=== PATIENT | female | born 1965 | race Hispanic/Latino ===

== ENCOUNTER 2022-05-16 10:34 | Day surgery (SDC) | payer BC ==
[2022-05-16] VITALS (17 sets, daily range): BP systolic 94–150; BP diastolic 49–97
[2022-05-16] MEDS ORDERED: 0.9%NACL 1000ML 1,000 ML IV ONE (11:13)
[2022-05-16] MEDS ORDERED: PROPOFOL 10 MG/ML 20ML VIAL IV ONE (11:46)
[2022-05-16] MEDS ORDERED: FENTANYL CITRATE PF 50 MCG/1 ML 2ML VIAL ONE (11:47)
[2022-05-16] MEDS ORDERED: MIDAZOLAM HCL 1 MG/ML 2ML VIAL ONE (11:47)
[2022-05-16] MEDS ORDERED: SUCCINYLCHOLINE 200MG/10ML SYR ONE (11:48)
[2022-05-16] MEDS ORDERED: GLYCOPYRROLATE 0.2 MG/ML 5 ML VIAL ONE (11:49)
[2022-05-16] MEDS ORDERED: LIDOCAINE PF 100MG/5ML (2%) SYRINGE 5ML ONE (11:50)
[2022-05-16] MEDS ORDERED: ONDANSETRON 4MG INJ ONE (11:50)
[2022-05-16] MEDS ORDERED: IOHEXOL-350 50ML VIAL IV ONE (13:24)
[2022-05-16] MEDS ORDERED: LEVOFLOXACIN 500 MG/D5W 100 ML 100 ML ONE (13:27)
== END 2022-05-16 16:26 | disposition home or self-care (01) ==
LOC: DAH 10:34 → ENDO 10:34
PROVIDERS: ATTEND Internal Medicine Gastroenterology
DX: T85.520A Displacement of bile duct prosthesis, initial encounter (principal); Z20.822 Contact with and (suspected) exposure to COVID-19; K80.70 Calculus of gallbladder and bile duct without cholecystitis without obstruction; K83.8 Other specified diseases of biliary tract; K76.0 Fatty (change of) liver, not elsewhere classified; Z90.49 Acquired absence of other specified parts of digestive tract; Z98.890 Other specified postprocedural states; Z90.710 Acquired absence of both cervix and uterus; Z82.49 Family history of ischemic heart disease and other diseases of the circulatory system; Z83.3 Family history of diabetes mellitus; Z82.3 Family history of stroke; Y83.8 Other surgical procedures as the cause of abnormal reaction of the patient, or of later complication, without mention of misadventure at the time of the procedure
CPT/HCPCS: 87635; 43265; 43262; 74328; C9803; J3010; J0330; J1956; J7030 ×2; J2001; J2250; J2704; J2405; J3490; Q9967; A4215 ×2; A4223; A4657; A4222; A4221; A4663; A4606; C1769; 74330

== ENCOUNTER 2022-05-19 02:33 | Inpatient (IN) | payer BC ==
[~2022-05-19] VITALS: Ht 160 cm; Wt 88.5 kg
[2022-05-19] VITALS (23 sets, daily range): BP systolic 99–157; BP diastolic 53–89
[2022-05-19] MEDS ORDERED: ONDANSETRON 4MG INJ ONE (02:50)
[2022-05-19] MEDS ORDERED: MORPHINE 4 MG SYG ONE (02:51)
[2022-05-19] MEDS ORDERED: ONDANSETRON 4MG INJ IVP ONE (03:30)
[2022-05-19] MEDS ORDERED: MORPHINE 4 MG SYG IVP ONE (03:30)
[2022-05-19 03:32] LABS: BASOPHILS % (AUTO) 0.3 % (0.0-5.0); EOSINOPHILS % (AUTO) 0.1 % (0.0-8.0); HEMATOCRIT 39.9 % (36-48); MEAN CORPUSCULAR HEMOGLOBIN 28.8 pg (27.0-33.0); MEAN CORPUSCULAR HGB CONC 33.3 g/dL (32.0-36.0); MEAN CORPUSCULAR VOLUME 86.4 fL (79-99); MONOCYTES % (AUTO) 2.6 % (3.0-13.0); NEUTROPHILS % (AUTO) 86.6 % (40.0-77.0); PLATELET COUNT (AUTO) 277 K/uL (130-400); RED BLOOD CELL COUNT(AUTO) 4.62 MIL/uL (4.00-5.50); RED CELL DISTRIBUTION WIDTH 14.4 % (11.0-15.5); WHITE BLOOD COUNT (AUTO) 9.8 K/uL (4.8-10.8)
[2022-05-19 03:39] LABS: CREATININE 0.8 mg/dL (0.5-1.5); POTASSIUM 3.3 mmol/L (3.5-5.1)
[2022-05-19 03:40] LABS: APPEARANCE,URINE CLEAR (CLEAR); BILIRUBIN,URINE NEGATIVE (NEGATIVE); COLOR,URINE YELLOW (YELLOW); GLUCOSE, URINE (UA) NEGATIVE (NEGATIVE); KETONES,URINE 5 mg/dL (NEGATIVE); LEUKOCYTE ESTERASE ,URINE NEGATIVE Leu/uL (NEGATIVE); NITRATE,URINE NEGATIVE (NEGATIVE); OCCULT BLOOD,URINE NEGATIVE (NEGATIVE); PH,URINE 5.5 (5.0-8.0); PROTEIN,URINE 10 mg/dL (NEGATIVE); UROBILINOGEN,URINE 3 mg/dL (0.2-1.0)
[2022-05-19 03:44] LABS: BACTERIA,URINE RARE /HPF (None Seen); MUCUS,URINE RARE LPF (None Seen); RBC,URINE 0-1 /HPF (0-1); SQUAMOUS EPITHELIAL CELL,UR RARE /HPF (0-2)
[2022-05-19 04:40] LABS: PLATELET MORPHOLOGY PLT CLUMPS PRESENT
[2022-05-19] MEDS ORDERED: IOHEXOL 350 MG/ML 100ML INFUS..BTL IV ONE ×2 (04:47→13:06)
[2022-05-19] MEDS ORDERED: ZOSYN 3.375GM +NS 50ML IV ONE (05:30)
[2022-05-19] MEDS ORDERED: PANTOPRAZOLE 40 MG/VIAL ONE (06:27)
[2022-05-19] MEDS ORDERED: MORPHINE 4 MG SYG IVP PRN (06:30)
[2022-05-19] MEDS ORDERED: FAMOTIDINE 20MG VIAL IV ONE (06:30)
[2022-05-19] MEDS ORDERED: POTASSIUM CHLORIDE 20MEQ/100ML 100 ML IV PRN (09:00)
[2022-05-19] MEDS ORDERED: LORAZEPAM 0.5 MG TABLET PO PRN (09:00)
[2022-05-19] MEDS ORDERED: HYDRALAZINE 20MG/ML VIAL IV PRN (09:00)
[2022-05-19] MEDS ORDERED: ONDANSETRON 4MG INJ IVP PRN (09:00)
[2022-05-19] MEDS ORDERED: MORPHINE 2 MG SYG IVP PRN (09:00)
[2022-05-19] MEDS ORDERED: KETOROLAC 15MG/ML VIAL (15MG/ML) IV PRN (09:00)
[2022-05-19] MEDS: ZOSYN 3.375GM +NS 50ML IV SCH ×3 (10:16→20:57)
[2022-05-19] MEDS: LACTATED RINGERS 1000ML 1,000 ML IV SCH ×2 (10:21→16:11)
[2022-05-19] MEDS: PANTOPRAZOLE 40 MG/VIAL IVP SCH (10:22)
[2022-05-19 10:33] LABS: CRP QUANTITATIVE 19.6 mg/L (0.00-9.0); MAGNESIUM 1.7 mg/dL (1.80-2.40)
[2022-05-19 10:35] LABS: PROTHROMBIN TIME 10.9 SEC (9.6-11.6)
[2022-05-19 10:37] LABS: PARTIAL THROMBOPLASTIN TIME 26.6 SEC (26.3-35.5)
[2022-05-19] MEDS ORDERED: FENTANYL CITRATE PF 50 MCG/1 ML 2ML VIAL ONE ×2 (13:03→13:39)
[2022-05-19] MEDS ORDERED: SUCCINYLCHOLINE 200MG/10ML SYR ONE (13:04)
[2022-05-19] MEDS ORDERED: PROPOFOL 10 MG/ML 20ML VIAL IV ONE ×2 (13:04→14:02)
[2022-05-19] MEDS ORDERED: ROCURONIUM 10MG/1ML SYR 10 MG/ML ML ONE (13:39)
[2022-05-19] MEDS ORDERED: PHENYLEPHRINE HCL 10 MG/ML 1ML VIAL IV ONE (14:09)
[2022-05-20] VITALS: BP 107/68
[2022-05-20] MEDS: LACTATED RINGERS 1000ML 1,000 ML IV SCH ×2 (02:09→18:19)
[2022-05-20 04:00] VITALS: BP 114/59
[2022-05-20] MEDS: ZOSYN 3.375GM +NS 50ML IV SCH ×3 (04:56→20:51)
[2022-05-20 06:14] LABS: BASOPHILS % (AUTO) 0.4 % (0.0-5.0); EOSINOPHILS % (AUTO) 1.4 % (0.0-8.0); HEMATOCRIT 32.8 % (36-48); LYMPHOCYTES % (AUTO) 20.5 % (21.0-51.0); MEAN CORPUSCULAR HEMOGLOBIN 29.3 pg (27.0-33.0); MEAN CORPUSCULAR HGB CONC 33.5 g/dL (32.0-36.0); MEAN CORPUSCULAR VOLUME 87.2 fL (79-99); MONOCYTES % (AUTO) 6.8 % (3.0-13.0); NEUTROPHILS % (AUTO) 70.7 % (40.0-77.0); PLATELET COUNT (AUTO) 202 K/uL (130-400); RED BLOOD CELL COUNT(AUTO) 3.76 MIL/uL (4.00-5.50); RED CELL DISTRIBUTION WIDTH 14.3 % (11.0-15.5); WHITE BLOOD COUNT (AUTO) 4.8 K/uL (4.8-10.8)
[2022-05-20 06:52] LABS: ALBUMIN 2.7 g/dL (3.5-5.0); CREATININE 0.9 mg/dL (0.5-1.5); MAGNESIUM 1.6 mg/dL (1.80-2.40); POTASSIUM 3.2 mmol/L (3.5-5.1)
[2022-05-20] MEDS ORDERED: CHOL500050 PO (07:27)
[2022-05-20] MEDS ORDERED: ASCO500T19 PO (07:27)
[2022-05-20 08:00] VITALS: BP 130/73
[2022-05-20] MEDS ORDERED: POTASSIUM CHLORIDE 10% ELIXIR 20 MEQ/15 ML UDCUP PO PRN (08:00)
[2022-05-20] MEDS ORDERED: MAGNESIUM 2GM PREMIX 50ML 50 ML IV SCH (08:30)
[2022-05-20] MEDS: PANTOPRAZOLE 40 MG/VIAL IVP SCH (08:53)
[2022-05-20] MEDS: KCL 20 MEQ ERTAB PO PRN ×3 (08:54→13:35)
[2022-05-20 11:34] VITALS: BP 142/74
[2022-05-20 16:00] VITALS: BP 127/66
[2022-05-20 19:00] VITALS: BP 137/76
[2022-05-21] VITALS: BP 136/75
[2022-05-21] MEDS: LACTATED RINGERS 1000ML 1,000 ML IV SCH ×2 (00:02→04:17)
[2022-05-21 04:00] VITALS: BP 132/75
[2022-05-21] MEDS: ZOSYN 3.375GM +NS 50ML IV SCH (04:12)
[2022-05-21 05:30] LABS: BASOPHILS % (AUTO) 0.4 % (0.0-5.0); EOSINOPHILS % (AUTO) 4.2 % (0.0-8.0); HEMATOCRIT 32.8 % (36-48); LYMPHOCYTES % (AUTO) 23.7 % (21.0-51.0); MEAN CORPUSCULAR HGB CONC 32.9 g/dL (32.0-36.0); MEAN CORPUSCULAR VOLUME 87.9 fL (79-99); NEUTROPHILS % (AUTO) 63.3 % (40.0-77.0); PLATELET COUNT (AUTO) 208 K/uL (130-400); RED BLOOD CELL COUNT(AUTO) 3.73 MIL/uL (4.00-5.50); RED CELL DISTRIBUTION WIDTH 14.7 % (11.0-15.5); WHITE BLOOD COUNT (AUTO) 4.8 K/uL (4.8-10.8)
[2022-05-21 06:14] LABS: ALBUMIN 2.8 g/dL (3.5-5.0); CREATININE 0.8 mg/dL (0.5-1.5); CRP QUANTITATIVE 67.2 mg/L (0.00-9.0); POTASSIUM 3.8 mmol/L (3.5-5.1); TOTAL PROTEIN, SERUM 6.3 g/dL (6.0-8.3)
[2022-05-21 08:00] VITALS: BP 142/75
[2022-05-21] MEDS: PANTOPRAZOLE 40 MG/VIAL IVP SCH (08:22)
[2022-05-21 12:00] VITALS: BP 142/78
[2022-05-21] MEDS ORDERED: METR-172 PO (12:06)
[2022-05-21] MEDS ORDERED: LEVO-70 PO (12:06)
== END 2022-05-21 13:00 | disposition home or self-care (01) | DRG 445 ==
LOC: EDH 02:33 → EDHIP 08:56 → 3AH 15:50
PROVIDERS: ADMIT Internal Medicine; ATTEND Internal Medicine
PROC: 0FC98ZZ Extirpation of Matter from Common Bile Duct, Via Natural or Artificial Opening Endoscopic (ICD-10-PCS; principal; 2022-05-19)
PROC: BF111ZZ Fluoroscopy of Biliary and Pancreatic Ducts using Low Osmolar Contrast (ICD-10-PCS; 2022-05-19)
DX: K80.71 Calculus of gallbladder and bile duct without cholecystitis with obstruction (principal); B17.9 Acute viral hepatitis, unspecified; K83.09 Other cholangitis; E87.6 Hypokalemia; E86.0 Dehydration; E66.9 Obesity, unspecified; Z90.49 Acquired absence of other specified parts of digestive tract; Z80.49 Family history of malignant neoplasm of other genital organs; Z83.3 Family history of diabetes mellitus; Z82.49 Family history of ischemic heart disease and other diseases of the circulatory system; Z82.3 Family history of stroke; Z90.710 Acquired absence of both cervix and uterus; Z68.34 Body mass index [BMI] 34.0-34.9, adult
CPT/HCPCS: 36415; 43262; 43264; 74177; 74181; 74330; 80053; 81001; 83690; 83735; 84145; 85025; 85610; 85651; 85730; 86140; 87040; 93005; A4606; C1769; C9113; G0378; J0330; J0360; J2270; J2370; J2405; J2543; J2704; J3010; J3475; J3480; J3490; J7120; Q9967